=== PATIENT | male | born 1980 ===

== ENCOUNTER 2019-03-17 07:10 | Emergency (ER) | payer OTHER ==
--- NOTE | 2019-03-17 07:40 | EDM.PDOC ---
ED HPI GENERAL MEDICAL PROBLEM - General Chief Complaint: Respiratory Problem Stated Complaint: TROUBLE BREATHING Time Seen by Provider: 03/17/19 07:25 - History of Present Illness INITIAL COMMENTS - FREE TEXT/NARRATIVE: HPI 47-year-old obese male presents with 2 weeks of gradually progressive right anterior knee pain that begins immediately proximal to his patella and radiates/ tracks along the length of his patella inferiorly to the knee, notes that he began treadmill exercise 2 weeks ago an effort to improve his weight, denies trauma, fevers, chills, notes brief periods of warmth/redness that is responsive to ice. No history of gout. No history of repetitive kneeling. No recent travel or exposure to areas where Lyme disease is endemic, no new sexual partners, no genital complaints. ROS with no recent constitutional symptoms. Triage note: AOx4, states pain to right knee since , denies any trauma. Advil - 3am Exam HR 92, RR 18, BP 139/89, T 36.4C, SaO2 97% on room air. Gen: Pleasant, nontoxic-appearing, resting comfortably. HEENT: NC, AT, PEERL, EOMI. Resp: Unlabored respirations with a normal work of breathing. Card: Extremities warm and well perfused. GI: Non-distended. : Deferred MSK: right knee with full functional range of motion, no tenderness to palpation over the patella, fibular head, or joint line. No MCL or LCL tenderness to palpation, negative posterior drawer test. Mild tenderness palpation over the quadriceps and patellar tendon, both tendons intact on knee extension. Mild swelling and tenderness over the prepatellar and infrapatellar bursa, no ecchymosis, skin normal color and warmth, no crepitus. Calf without visible or palpable trauma, muscle compartments soft and non-tender to palpation. Gait - Patient able to take four steps with a no minimally antalgic gait. Neuro: alert and oriented 3, no facial asymmetry, vision and hearing WNL. Heme/Lymph: Deferred Skin: Normal color with no visible lesions (other than noted above). Psych: Mood and affect appropriate. MDM Previous chart, nursing note, and vitals reviewed. A: 47-year-old obese male presents with 2 weeks of gradually progressive right anterior knee pain that begins immediately proximal to his patella and radiates/ tracks along the length of his patella inferiorly to the knee, notes that he began treadmill exercise 2 weeks ago an effort to improve his weight, denies trauma, fevers, chills, notes brief periods of warmth/redness that is responsive to ice. DDx & Evaluation: history and exam C/W prepatellar bursitis, no clear evidence of infection, however given history of warmth and tenderness and lack of good follow-up Bactrim DS BID modifications 14 days was prescribed. Patient instructed to take ibuprofen and acetaminophen for pain control, reduce provoking physical activity, follow up with PCP as possible, and return to care as needed. The time of the patients evaluation there is no evidence of joint involvement (absence of effusion, absence of warmth or joint tenderness, and no joint pain on ambulation). CMS intact. No features to warrant x-ray the present time. Impression: right knee pain. - Related Data Home Meds: Home Meds Sulfamethoxazole/Trimethoprim [Bactrim Ds Tablet] 2 each PO BID 14 Days #56 tablet 03/17/19 [Rx] ED ROS GENERAL - Review of Systems Review Of Systems: See Below ED EXAM, GENERAL - Physical Exam Exam: See Below Departure - Departure Time of Disposition: 07:38 Disposition: Home, Self-Care 01 Clinical Impression: Knee pain - Discharge Information Prescriptions: Sulfamethoxazole/Trimethoprim [Bactrim Ds Tablet] 2 each PO BID 14 Days #56 tablet
--- NOTE | 2019-03-17 08:35 | CR ---
INDICATION: SOB INDICATION: Shortness of breath. TECHNIQUE: Chest 2 views. COMPARISON: None FINDINGS: Cardiovascular and mediastinum: Heart size and vasculature are normal in caliber and appearance. Mediastinum is within normal limits. Lungs and pleural spaces: Lungs are clear. No sign of infiltrate or mass. No sign of pleural effusion. No pneumothorax. Bones and soft tissues: No significant findings. Partially visualized lap band in the upper abdomen. IMPRESSION: Lungs are clear. Dictated by Antonino Holly MD @ 03/17/2019 8:32:39 AM Dictated by: Antonino Holly MD @ 03/17/2019 08:33:15 (Electronically Signed)
[2019-03-17 09:15] LABS: BLOOD UREA NITROGEN,BUN 16 mg/dL (7.0-18.0); CARBON DIOXIDE,CO2 25.7 mmol/L (21.0-32.0); CHLORIDE,CL 101 mmol/L (98-107); GLUCOSE RANDOM 98 mg/dL (74-106); POTASSIUM,K 4.2 mmol/L (3.5-5.1); SODIUM,NA 137 mmol/L (136-148)
== END 2019-03-17 09:39 | disposition home or self-care (01) ==
LOC: MW.ED 07:10
DX: J11.1 Influenza due to unidentified influenza virus with other respiratory manifestations (principal)
CPT/HCPCS: 71046; 71046-26; 80048; 85025; 87804; 99282; 99285-25